=== PATIENT | female | born 1960 | race Caucasian/White ===

== ENCOUNTER 2017-08-15 08:34 | Emergency (ER) | payer OTHER ==
[~2017-08-15] VITALS: Ht 162.6 cm; Wt 76.3 kg
[2017-08-15] MEDS ORDERED: PERCOCET 5/31 TABLET PO (10:08)
[2017-08-15 11:04] VITALS: BP 147/93
== END 2017-08-15 11:08 | disposition home or self-care (01) ==
LOC: EME 08:34
PROC: 3E0234Z Introduction of Serum, Toxoid and Vaccine into Muscle, Percutaneous Approach (ICD-10-PCS; principal; 2017-08-15)
DX: S42.032A Displaced fracture of lateral end of left clavicle, initial encounter for closed fracture (principal); V49.40XA Driver injured in collision with unspecified motor vehicles in traffic accident, initial encounter; Y92.410 Unspecified street and highway as the place of occurrence of the external cause; Z23 Encounter for immunization
CPT/HCPCS: 71045; 73030; 73060; 99281; 99285

== ENCOUNTER 2017-08-27 10:09 | Day surgery (SDC) | payer OTHER ==
[~2017-08-27] VITALS: Ht 162.6 cm; Wt 74.8 kg
[~2017-08-27 10:09] MED LIST: PERCOCET 5/31 TABLET PO
[2017-08-27 10:37] VITALS: BP 149/82
[2017-08-27] MEDS ORDERED: ALEVE220 MG PO (11:03)
[2017-08-27 14:45] VITALS: BP 149/87
[2017-08-27 15:50] VITALS: BP 139/87
== END 2017-08-27 15:50 | disposition home or self-care (01) ==
LOC: SDC 10:09
PROC: 0PSB04Z Reposition Left Clavicle with Internal Fixation Device, Open Approach (ICD-10-PCS; principal; 2017-08-27)
DX: S42.022A Displaced fracture of shaft of left clavicle, initial encounter for closed fracture (principal); Z87.891 Personal history of nicotine dependence; Z68.28 Body mass index [BMI] 28.0-28.9, adult; V89.2XXA Person injured in unspecified motor-vehicle accident, traffic, initial encounter; Z88.0 Allergy status to penicillin; Z88.2 Allergy status to sulfonamides
CPT/HCPCS: 73000; 76000; C1713; J1100; J1885; J2250; J2405; J2795; J3010